=== PATIENT | male | born 1980 | race Caucasian/White ===

== ENCOUNTER 2016-12-27 06:15 | Emergency (ER) | payer OTHER ==
[2016-12-27] MEDS ORDERED: HYDROcodone/Acetaminophen 5/325 mg Tablet ONE (07:16)
[2016-12-27] MEDS ORDERED: Gabapentin 100 MG CAP ONE (07:16)
[2016-12-27] MEDS ORDERED: Ibuprofen 800 MG TAB ONE (07:16)
[2016-12-27] MEDS ORDERED: Dexamethasone 4 MG TAB ONE (07:16)
--- NOTE | 2016-12-27 07:54 | RAD ---
CHEST 2 VIEWS: HISTORY: Cough. COMPARISON: 09/29/13. FINDINGS: Cardiac silhouette and pulmonary vasculature are unremarkable. Mediastinum is midline. Posterior c ostophrenic angles are excluded from the lateral view. No lobar consolidation or pneumothorax are a pparent. IMPRESSION: No active cardiopulmonary abnormalities are demonstrated. POS: H
== END 2016-12-27 07:39 | disposition home or self-care (01) ==
LOC: MADERS 06:15
DX: B02.9 Zoster without complications (principal); E78.5 Hyperlipidemia, unspecified; I10 Essential (primary) hypertension; F41.9 Anxiety disorder, unspecified; F17.210 Nicotine dependence, cigarettes, uncomplicated; Z79.899 Other long term (current) drug therapy
CPT/HCPCS: 71020; J8540

== ENCOUNTER 2017-09-06 16:22 | Emergency (ER) | payer OTHER, SELFPAY ==
[2017-09-06] MEDS ORDERED: Ketorolac Tromethamine 30 MG/ML VIAL ONE (17:06)
[2017-09-06] MEDS ORDERED: HYDROcodone/Acetaminophen 10/325 mg Tablet ONE (17:06)
[2017-09-06] MEDS ORDERED: HYDROcodone/Acetaminophen 5/325 mg Tablet ONE (17:08)
== END 2017-09-06 17:32 | disposition home or self-care (01) ==
LOC: MADERS 16:22
DX: S39.012A Strain of muscle, fascia and tendon of lower back, initial encounter (principal); K21.9 Gastro-esophageal reflux disease without esophagitis; E78.5 Hyperlipidemia, unspecified; I10 Essential (primary) hypertension; F41.9 Anxiety disorder, unspecified; F17.210 Nicotine dependence, cigarettes, uncomplicated; Z79.899 Other long term (current) drug therapy; X58.XXXA Exposure to other specified factors, initial encounter
CPT/HCPCS: 96372; J1885

== ENCOUNTER 2019-03-03 03:09 | Emergency (ER) | payer OTHER ==
[2019-03-03 03:55] LABS: #Basophils 0.1 thou/uL (0.0-0.2); #Lymphocytes 2.2 thou/uL (1.20-3.40); #Monocytes 0.8 thou/uL (0.11-0.59); #Neutrophils 8.5 thou/uL (1.40-6.50); %Basophils 1.2 % (0.0-1.0); %Eosinophils 0.2 % (0.0-10.0); %Lymphocytes 19.1 % (21.0-51.0); %Monocytes 6.9 % (0.0-10.0); %Neutrophils 72.6 % (42.0-75.0); Mean Corpuscular HGB CONC 32.9 g/dL (32.0-36.0); Mean Corpuscular Hemoglobin 30.2 pg (27.0-31.0); Mean Corpuscular Volume 91.8 fL (78.0-98.0); Mean Platelet Volume 7.2 fL (7.4-10.4); Platelet Count 384 thou/uL (130-400); RBC Distribution Width 11.4 % (11.5-14.5); White Blood Cell (WBC) Count 11.7 thou/uL (4.8-10.8)
[2019-03-03 04:08] LABS: ALT (SGPT) 29 U/L (8-55); AST (SGOT) 30 U/L (5-34); Alkaline Phosphatase 69 U/L (40-110); Anion Gap 17 mmol/L (10-20); BUN (Urea Nitrogen) 19 mg/dL (8.9-20.6); Bilirubin, Total 0.7 mg/dL (0.2-1.2); Calc. Creatinine Clearance 0 mL/min (70-130); Calcium 10.1 mg/dL (7.8-10.44); Carbon Dioxide 22 mmol/L (22-29); Chloride 107 mmol/L (98-107); Estimated GFR-MDRD 60; Globulin 2.9 g/dL (2.4-3.5); Glucose 136 mg/dL (70-105); Potassium 3.6 mmol/L (3.5-5.1); Protein, Total 7.9 g/dL (6.0-8.3); Sodium 142 mmol/L (136-145)
[2019-03-03] MEDS ORDERED: Aspirin Chewable 81 MG TAB ONE (04:10)
[2019-03-03] MEDS ORDERED: ALPRAZolam 0.5 MG TAB ONE (04:10)
[2019-03-03 04:26] LABS: Amphetamine Not Detected (NotDetected); Barbiturates Screen Not Detected (NotDetected); Benzodiazepine Screen Not Detected (NotDetected); Cocaine Metabolite Screen Detected (NotDetected); Methadone Not Detected (NotDetected); Methamphetamine Not Detected (NotDetected); Opiate Screen Not Detected (NotDetected); Oxycodone Screen Not Detected (NotDetected); Phencyclidine (PCP) Not Detected (NotDetected); THC/Cannabinoid Screen Not Detected (NotDetected); Tricyclic Screen Not Detected (NotDetected)
[2019-03-03 04:27] LABS: Medtox Control Line Valid? VALID (VALID)
--- NOTE | 2019-03-03 07:33 | RAD ---
RADIOGRAPH CHEST 2 VIEWS: DATE: 03/03/2019 HISTORY: 38-year-old male with dyspnea FINDINGS: The lungs are clear. The cardiomediastinal silhouette and hilar shadows appear normal. There is no pl eural effusion or pneumothorax. IMPRESSION: Normal
== END 2019-03-03 07:37 | disposition home or self-care (01) ==
LOC: MADERS 03:09
DX: F14.10 Cocaine abuse, uncomplicated (principal); R06.02 Shortness of breath; K21.9 Gastro-esophageal reflux disease without esophagitis; E78.5 Hyperlipidemia, unspecified; E78.00 Pure hypercholesterolemia, unspecified; I10 Essential (primary) hypertension; F41.9 Anxiety disorder, unspecified; F17.210 Nicotine dependence, cigarettes, uncomplicated; Z79.899 Other long term (current) drug therapy
CPT/HCPCS: 71046; 80053; 80306; 83880; 84443; 84484; 85025; 85379; 93005; 94760